=== PATIENT | female | born 1995 | race African-American/Black ===

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

== ENCOUNTER 2023-09-30 10:42 | Emergency (ER) | payer MEDICAID ==
[~2023-09-30] VITALS: Ht 154.9 cm; Wt 58.0 kg
[2023-09-30 10:52] VITALS: BP 107/54; PULSE 64; TEMP 100.7; O2SAT 97
[2023-09-30] MEDS: FAMOTIDINE 20MG/2ML VIAL IV STA (10:54)
[2023-09-30] MEDS: ONDANSETRON HCL 4MG/2ML INJ IV STA (10:54)
[2023-09-30 11:00] VITALS: RESP 16
[2023-09-30] MEDS: SODIUM CHLORIDE 0.9% 1,000 ML IV ONE (11:00)
[2023-09-30] MEDS: MORPHINE SULFATE 4 MG/ML INJ (FOR IV/IM USE) IV ONE (11:00)
[2023-09-30 11:17] LABS: BASOPHILS % 0.3 % (0.0-2.0); EOSINOPHILS % 0.9 % (0.0-5.0); HEMATOCRIT. 40.1 % (36.0-48.0); HEMOGLOBIN. 13.7 g/dL (12.0-16.0); LYMPHOCYTES % 13.6 % (20.0-50.0); MEAN CORPUSCULAR HEMOGLOBIN 31.8 pg (28.0-32.0); MEAN CORPUSCULAR HGB CONC 34.1 g/dL (31.0-37.0); MEAN CORPUSCULAR VOLUME 93.4 fL (81.0-99.0); MEAN PLATELET VOLUME 7.1 fl (7.4-10.4); MONOCYTES % 7.9 % (2.0-8.0); NEUTROPHILS % 77.3 % (40.0-76.0); PLATELET 286 x1000/uL (130-400); RED BLOOD CELL COUNT 4.29 mill/uL (4.2-5.4); WHITE BLOOD COUNT 6.1 x1000/uL (4.5-11.0)
[2023-09-30 11:27] LABS: CHLORIDE 104 mEq/L (98-107); POTASSIUM 4.3 mEq/L (3.5-5.1); SODIUM 137 mEq/L (136-145)
[2023-09-30 11:28] LABS: CALCIUM 9.4 mg/dL (8.7-10.4); CARBON DIOXIDE 28 mEq/L (21-32)
[2023-09-30 11:31] LABS: PROTHROMBIN TIME 11.2 sec (9.6-11.0)
[2023-09-30 11:33] LABS: CREATININE 0.8 mg/dL (0.6-1.0); GLUCOSE 131 mg/dL (70-105); UREA NITROGEN BLOOD 10 mg/dL (9-23)
[2023-09-30 11:39] LABS: HCG SCREEN NEGATIVE
[2023-09-30] MEDS ORDERED: AZIT250T12 MT (11:59)
[2023-09-30] MEDS ORDERED: TOPUD MT (11:59)
[2023-09-30] MEDS ORDERED: IBUP-1523 MT (11:59)
[2023-09-30] MEDS ORDERED: DEXT30SU17 MT (11:59)
== END 2023-09-30 13:05 | disposition home or self-care (01) ==
LOC: ER 10:42
DX: R05.9 Cough, unspecified (principal)
CPT/HCPCS: 80048; 81025; 84703; 83690; 85025; 85610; 36415; 99283; J7030; Z7610; J2270; J2405; J3490